=== PATIENT | male | born 1960 | race Caucasian/White ===

== ENCOUNTER → 2016-10-08 | Outpatient (CLI) | payer OTHER ==
[~2016-10-08] MED LIST: ATOR-54 PO; COLE1TAB5 PO; CYAN100020 PO; ENALAPRIL PO; LOPE1TAB25 PO; MULT-506 PO; OMEP20CA59 PO; ZOLP10TA PO
[2016-10-08 10:30] LABS: BLOOD UREA NITROGEN 11 mg/dl (7-18); BUN/CREATININE RATIO 13.3 (10-20); CREATININE 0.83 mg/dl (0.60-1.40)
--- NOTE | 2016-10-13 12:56 | CODING QUERY MEDICAL NECESSITY ---
SUPPORTING DIAGNOSIS NEEDED A supporting diagnosis is required for the test/procedure performed on this patient in order for us to be reimbursed by the patient's insurance. Please provide a supporting diagnosis for the following test/procedure listed below next to the test name along with your signature. *If there is no additional diagnosis for this patient that would support the following test/procedure please document that below next to the test/procedure. Test(s)/Procedure(s) that require a supporting diagnosis: * PSA DIAGNOSIS: * DOS: 10/08/16 Provider Signature: Date: Thank you Analia Wynn [employer] Once completed, please kindly fax back to [phone] For questions please call [phone]
== END | disposition home or self-care (01) ==
LOC: C.LAB 09:14
PROVIDERS: ATTEND Urology
DX: N20.0 Calculus of kidney (principal); N52.9 Male erectile dysfunction, unspecified; Z12.5 Encounter for screening for malignant neoplasm of prostate

== ENCOUNTER → 2016-11-23 | Outpatient (CLI) | payer OTHER ==
--- NOTE | 2016-11-23 09:00 | DIAGNOSTIC IMAGING REPORT ---
KUB HISTORY: N20.0 [id number] COMPARISON: KUB 07/22/2016. FINDINGS: The bowel gas pattern is unremarkable. There are no dilated loops of small bowel to suggest an obstruction. No renal calculi. No ureteral calculi. Calcifications in the deep pelvis likely represent phleboliths. Postoperative changes within the right side of the abdomen. There is a right total hip arthroplasty. Stable round density within the right side the abdomen. This does not represent a ureteral stone. No pneumoperitoneum or pneumatosis. IMPRESSION: No renal or ureteral stones identified. Electronically signed by: Braden Mehta M.D. 11/23/2016 8:58 AM Dictated Date/Time: 11/23/2016 8:57 AM
== END | disposition home or self-care (01) ==
LOC: C.RAD 08:42
PROVIDERS: ATTEND Nurse Practitioner Family
DX: N20.0 Calculus of kidney (principal)

== ENCOUNTER → 2017-11-23 | Outpatient (CLI) | payer OTHER ==
--- NOTE | 2017-11-23 13:08 | DIAGNOSTIC IMAGING REPORT ---
KUB CLINICAL HISTORY: 57 years-old Male presenting with N20.0 [id number]. TECHNIQUE: Single supine view of the abdomen was obtained. COMPARISON: 11/23/2016. FINDINGS: Surgical clips project over the right mid abdomen. Anastomotic suture lines evident in the right lower quadrant. Calcification in the right lower quadrant may be within the appendix. Allowing for bowel gas and stool, possible calcification projects over the upper pole of the right kidney. No radiographic evidence of ureteral calculi. Stable distribution of pelvic phleboliths. Postsurgical changes of total right hip arthroplasty again noted. Lung bases clear. IMPRESSION: 1. Possible right renal calculus. No radiographic evidence of ureteral calculi. Electronically signed by: Jaime Dumont M.D. 11/23/2017 1:06 PM Dictated Date/Time: 11/23/2017 1:04 PM
[2017-11-23 15:15] LABS: BLOOD UREA NITROGEN 11 mg/dl (7-18); CREATININE 0.89 mg/dl (0.60-1.40)
== END | disposition home or self-care (01) ==
LOC: C.RAD 12:17
PROVIDERS: ATTEND Urology
DX: N20.0 Calculus of kidney (principal)